=== PATIENT | male | born 1965 | race Caucasian/White ===

== ENCOUNTER 2021-02-07 12:42 | Observation (INO) ==
--- NOTE | 2021-02-07 14:44 | Emergency Department Note ---
Impression & Plan Stroke-like episode ADMIT ED Provider Note HPI: The patient is a 55-year-old male with history of hypertension, presents the emergency department with concern for strokelike symptoms. Patient's is at the bedside and serves as the primary historian, patient's states that the patient developed some symptoms of right-sided visual change at about 9:00 that lasted about 20 minutes. Patient is able to tell me that he was having some difficulty using the mouse at work on his computer and could not get it lined up with certain things he was trying to click on on the desktop. Later in the day when he went to work he was having some issues with receptive aphasia, he was having difficulty processing information and responding appropriately when people were speaking to him. He also apparently had an episode of right-sided weakness that he tells me was transient On arrival here to the ED the patient does have some intermittent garbled speech and issues with communication, he is noted to have slight right-sided facial droop and some ataxia on qxgcwl-cy-zsgd testing on the right side. He is otherwise alert and oriented x3 and he is able to answer these questions appropriately, he is hemodynamically stable and saturating well on room air. ROS: -Neuro: Strokelike event, receptive aphasia, ataxia *10 point review systems was conducted and is otherwise negative unless stated above *Outpatient medications and allergy history reviewed PE: General: Alert, NAD HEENT: Normocephalic, atraumatic, trachea midline Eyes: Extraocular eye movement is intact, no scleral erythema Pulmonary: Clear to auscultation bilaterally, no wheezing Cardio: Regular rate and rhythm GI: Abdomen is soft, nontender : No suprapubic tenderness MSK: No evidence of trauma or malformation of the extremities, no edema Skin: No evidence of rash Neuro: Alert, mild right-sided facial droop is appreciated, there is ataxia on the right side on aolcza-ss-ehiv testing, left side rpfkix-qg-nbtl testing is intact, patient is noted to have difficulty responding to questions/receptive aphasia 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: - An order was placed for continuous cardiac monitoring - Patient was noted to be in sinus rhythm with rate of 96 EKG: Rate: 78 Rhythm: Normal sinus rhythm Intervals: Within normal limits ST changes: No ST elevation Time: 1450 NIH STROKE SCALE: 1A: Level of consciousness Alert; keenly responsive 0 1B: Ask month and age Both questions right 0 1C: 'Blink eyes' & 'squeeze hands' Performs both tasks 0 2: Horizontal extraocular movements Normal 0 3: Visual franz No visual loss 0 4: Facial palsy Minor paralysis (flat nasolabial fold, smile asymmetry) +1 5A: Left arm motor drift No drift for 10 seconds 0 5B: Right arm motor drift No drift for 10 seconds 0 6A: Left leg motor drift No drift for 5 seconds 0 6B: Right leg motor drift No drift for 5 seconds 0 7: Limb Ataxia Ataxia in 1 Limb +1 8: Sensation Normal; no sensory loss 0 9: Language/aphasiaNormal; no aphasia Mild-moderate aphasia: some obvious changes, without significant limitation +1 10: Dysarthria Normal 0 11: Extinction/inattention No abnormality 0 TOTAL NIH SCORE = 3 Medical Decision Making: CT imaging obtained here in the ED without contrast does not show any evidence of acute intracranial bleeding. No evidence of subacute stroke. CT angiography does not show any evidence of large vessel occlusion or stroke. Patient's lab work is largely unremarkable otherwise. He remained hemodynamically stable while here in the ED. He complained of some "restlessness" but did not have any progression of his symptoms. Patient was given a dose of aspirin following negative CT imaging. He is not considered a candidate for TPA therapy given that he is outside the 4.5-hour window for therapy, he is not a candidate for thrombectomy with negative CTA. He has an NIH stroke score of 3, he has ataxia on the right side on wnfpus-iy-wcha testing, he is also noted to have some very mild right-sided facial droop, he has had some intermittent issues with receptive aphasia. This seems to be improving throughout his stay here in the ED. Patient was given a dose of Ativan after his work-up was completed as he stated he felt very restless and was having issues with anxiety. I do think he needs to stay in the hospital for secondary stroke work-up and MRI imaging of the brain as I do have concern that the symptoms today represent an ischemic stroke. Patient is at the bedside are in agreement. Case was discussed with the [place] [facility], STEVE Birch, and patient will be admitted to a telemetry bed for further management. * Diagnosis: Strokelike episode * Disposition: Admission * CRITICAL CARE TIME: 34 min -Management of acute strokelike symptoms requiring time at the bedside including physical exam and NIH stroke scale to be performed, discussion with the patient and his at the bedside, interpretation of diagnostic studies, discussion with other healthcare providers and arrangement of admission. Benentt Wood DO Emergency Medicine Past Med/Surg History Medical History (Updated 02/07/21 @ 16:11 by Bennett Wood DO) GERD (gastroesophageal reflux disease) Gout attack Hypertension Social History Smoking Status: Never smoker Feels Safe at Home: Yes Allergies Allergies Allergy/AdvReac Type Severity Reaction Status Date / Time No Known Allergies Allergy Unverified 02/07/21 15:53 Home Meds Home Medications Medication Instructions Recorded Confirmed allopurinol 100 mg tablet 100 mg PO BID 05/24/19 02/07/21 amlodipine 5 mg tablet 5 mg PO DAILY 02/07/21 02/07/21 losartan 100 mg tablet 100 mg PO DAILY 02/07/21 02/07/21 omeprazole 20 mg capsule,delayed 20 mg PO DAILY 02/07/21 02/07/21 release Results & Data (ED) Vital Signs Vital Signs - 24 hr 02/07/21 12:46 02/07/21 14:42 02/07/21 15:27 Temperature 36.2 C L Temperature Source Temporal Artery Scan Pulse Rate 100 H Pulse Rate [Apical] 84 Pulse Rate [Finger] 82 Pulse Rhythm [Apical] Regular Pulse Rhythm [Finger] Regular Pulse Strength [Apical] Normal Pulse Strength [Finger] Normal Respiratory Rate 17 20 22 Respiratory Effort / Characteristics Non-Labored Non-Labored Spontaneous Respiratory Depth Normal Normal Respiratory Pattern Regular Regular Blood Pressure 129/67 Blood Pressure [Right Arm] 168/119 H 158/100 H Blood Pressure Mean 87 Blood Pressure Mean [Right Arm] 135 119 Blood Pressure Position [Right Arm] Sitting Semi-fowlers Pulse Oximetry 96 94 99 Oxygen Delivery Method Room Air Room Air Room Air Sepsis Recent Fever Within 48 Hours No Sepsis New/Unexplained Change in Mental Status N/A Sepsis Action Taken by Nursing No Action Required Laboratory Data Result diagrams: 02/07/21 14:50 02/07/21 14:50 Lab Results 02/07/21 02/07/21 02/07/21 Range/Units 14:49 14:50 14:50 WBC 10.89 H (4.8-10.8) K/uL RBC 5.25 (4.7-6.1) M/uL Hgb 16.7 (14.0-18.0) g/dL Hct 48.6 (42-52) % MCV 92.6 (80-100) fL MCH 31.8 (25-34) pg MCHC 34.4 (32-36) g/dL RDW Std Deviation 44.4 (36.4-46.3) fL RDW Coeff of Margi 13.0 (11.5-14.5) % Plt Count 280 (130-400) K/uL MPV 9.6 (7.4-10.4) fL Immature Gran % (Auto) 0.3 % Neut % (Auto) 68.8 % Lymph % (Auto) 22.2 % [place] % (Auto) 6.7 % Eos % (Auto) 1.4 % Baso % (Auto) 0.6 % Neut # (Auto) 7.50 H (1.4-6.5) K/uL Lymph # (Auto) 2.42 (1.2-3.4) K/uL [place] # (Auto) 0.73 H (0.11-0.59) K/uL Eos # (Auto) 0.15 (0-0.5) K/uL Baso # (Auto) 0.06 (0-0.2) K/uL Immature Gran # (Auto) 0.03 H (0.00-0.02) K/uL PT 9.8 (9.0-12.0) Seconds INR 1.0 (0.9-1.1) APTT 25.6 (21.0-31.0) Seconds PTT Ratio 1.0 Sodium (136-145) mmol/L Potassium (3.5-5.1) mmol/L Chloride (98-107) mmol/L Carbon Dioxide (21-32) mmol/L Anion Gap (3-11) BUN (7-18) mg/dl Creatinine (0.6-1.4) mg/dl Est Cr Clr Drug Dosing ml/min Est GFR ( Amer) ml/min Est GFR (Non-Af Amer) ml/min BUN/Creatinine Ratio (10-20) Glucose (70-99) mg/dl POC Glucose 104 H (70-99) mg/dl Calcium (8.5-10.1) mg/dl Magnesium (1.8-2.4) mg/dl Total Bilirubin (0.2-1) mg/dl AST (15-37) U/L ALT (12-78) U/L Alkaline Phosphatase (45-117) U/L Troponin I (0-0.045) ng/ml Total Protein (6.4-8.2) gm/dl Albumin (3.4-5.0) gm/dl Globulin (2.5-4.0) gm/dl Albumin/Globulin Ratio (0.9-2) 02/07/21 Range/Units 14:50 WBC (4.8-10.8) K/uL RBC (4.7-6.1) M/uL Hgb (14.0-18.0) g/dL Hct (42-52) % MCV (80-100) fL MCH (25-34) pg MCHC (32-36) g/dL RDW Std Deviation (36.4-46.3) fL RDW Coeff of Margi (11.5-14.5) % Plt Count (130-400) K/uL MPV (7.4-10.4) fL Immature Gran % (Auto) % Neut % (Auto) % Lymph % (Auto) % [place] % (Auto) % Eos % (Auto) % Baso % (Auto) % Neut # (Auto) (1.4-6.5) K/uL Lymph # (Auto) (1.2-3.4) K/uL [place] # (Auto) (0.11-0.59) K/uL Eos # (Auto) (0-0.5) K/uL Baso # (Auto) (0-0.2) K/uL Immature Gran # (Auto) (0.00-0.02) K/uL PT (9.0-12.0) Seconds INR (0.9-1.1) APTT (21.0-31.0) Seconds PTT Ratio Sodium 137 (136-145) mmol/L Potassium 3.8 (3.5-5.1) mmol/L Chloride 103 (98-107) mmol/L Carbon Dioxide 26 (21-32) mmol/L Anion Gap 8.0 (3-11) BUN 18 (7-18) mg/dl Creatinine 1.43 H (0.6-1.4) mg/dl Est Cr Clr Drug Dosing 68.0 ml/min Est GFR ( Amer) 62.6 ml/min Est GFR (Non-Af Amer) 54.0 ml/min BUN/Creatinine Ratio 12.7 (10-20) Glucose 103 H (70-99) mg/dl POC Glucose (70-99) mg/dl Calcium 9.2 (8.5-10.1) mg/dl Magnesium 2.4 (1.8-2.4) mg/dl Total Bilirubin 0.6 (0.2-1) mg/dl AST 21 (15-37) U/L ALT 42 (12-78) U/L Alkaline Phosphatase 132 H (45-117) U/L Troponin I < 0.015 (0-0.045) ng/ml Total Protein 8.4 H (6.4-8.2) gm/dl Albumin 4.5 (3.4-5.0) gm/dl Globulin 3.9 (2.5-4.0) gm/dl Albumin/Globulin Ratio 1.2 (0.9-2) Administered Medications Sodium Chloride (Nss 1000ml) 1,000 mls @ 999 mls/hr IV .Q1H1M ONE Stop: 02/07/21 16:28 Last Admin: 02/07/21 15:50 Dose: 999 mls/hr Documented by: [id number] Discontinued Medications Aspirin (Aspirin Chew 324 Mg) 324 mg PO NOW STA Stop: 02/07/21 15:39 Last Admin: 02/07/21 15:50 Dose: 324 mg Documented by: [id number] Ioversol (Optiray 320 125ml) 120 ml IV ONCE ONE Stop: 02/07/21 15:22 Last Admin: 02/07/21 15:21 Dose: 120 ml Documented by: [id number] Imaging Data Radiologist's Impression: Head CT 02/07/21 14:[address] OF THE BRAIN; CT ANGIOGRAM OF THE BRAIN; CT ANGIOGRAM OF THE NECK CLINICAL HISTORY: Strokelike symptoms. COMPARISON STUDY: No priors. TECHNIQUE: Unenhanced axial CT scan of the brain is performed. Subsequently, following the IV administration of 120 of Optiray 320, CT angiogram of the head and neck was performed from the aortic arch to the vertex. Images are reviewed in the axial, sagittal, and coronal planes. 3-D MIPS images are created and assessed. IV contrast was administered without complication. All measurements were calculated based on NASCET criteria. A dose lowering technique was utilized adhering to the principles of ALARA. CT DOSE: 1334.08 mGy.cm FINDINGS: Brain parenchyma: The brain parenchyma is normal in appearance. There is no hemorrhage, mass effect, or evidence of acute territorial ischemia by CT cri teria. There is no evidence of enhancing mass lesion on the angiogram phase images. The ventricles, sulci, and cisterns are normal in configuration. Hernandez- white matter differentiation is preserved. No extra-axial fluid collection is seen. Thoracic aorta: Visualized portions of the thoracic aorta are normal in caliber. The aortic arch demonstrates standard 3-vessel anatomy. Right carotid arterial system: Right common carotid artery is widely patent, as are the right internal and external carotid arteries. Mild plaque is seen in the carotid bulb. Left carotid arterial system: The left common carotid artery is widely patent, as are the left internal and external carotid arteries. Vertebral arteries: Vertebral arteries are widely patent bilaterally and codominant in the neck. Subclavian arteries: Widely patent bilaterally. Intracranial vasculature: The internal carotid arteries are patent at the skull base, as are the anterior and middle cerebral arteries bilaterally. The vertebrobasilar system and posterior cerebral arteries are widely patent. Intervertebral arteries are codominant. There is no aneurysm, high-grade stenosis, or focal vessel cut off seen throughout the intracranial circulation. Jugular veins: Patent bilaterally. Dural sinuses: Patent. Lung apices: Partially visualized upper lobe lung parenchyma appears clear. Soft tissues: The visualized pharyngeal soft tissues are normal in appearance noting angiographic phase technique. The oropharyngeal airway appears widely patent. The salivary and thyroid glands are normal in appearance. No cervical lymphadenopathy is seen. Skeletal structures: The calvarium appears intact. The cervical spine is maintained noting multilevel spondylosis. No lytic or blastic lesion is seen. Orbits: The bony orbits are intact. Orbital contents are normal as visualized. Sinuses and mastoids: There is subtotal opacification of the right maxillary sinus. The remaining paranasal sinuses are clear. The mastoid air cells are well pneumatized. IMPRESSION: 1. There is no hemorrhage, mass effect, or evidence of acute territorial ischemia by CT criteria. 2. Unremarkable CT angiogram of the brain. 3. Unremarkable CT angiogram of the neck. 4. Right maxillary sinus disease as above. ACT 112: Negative or not required by law. Electronically signed by: Osito Patel M.D. 02/07/2021 3:32 PM Head CTA 02/07/21 14:[address] OF THE BRAIN; CT ANGIOGRAM OF THE BRAIN; CT ANGIOGRAM OF THE NECK CLINICAL HISTORY: Strokelike symptoms. COMPARISON STUDY: No priors. TECHNIQUE: Unenhanced axial CT scan of the brain is performed. Subsequently, following the IV administration of 120 of Optiray 320, CT angiogram of the head and neck was performed from the aortic arch to the vertex. Images are reviewed in the axial, sagittal, and coronal planes. 3-D MIPS images are created and assessed. IV contrast was administered without complication. All measurements were calculated based on NASCET criteria. A dose lowering technique was utilized adhering to the principles of ALARA. CT DOSE: 1334.08 mGy.cm FINDINGS: Brain parenchyma: The brain parenchyma is normal in appearance. There is no hemorrhage, mass effect, or evidence of acute territorial ischemia by CT criteria. There is no evidence of enhancing mass lesion on the angiogram phase images. The ventricles, sulci, and cisterns are normal in configuration. Hernandez- white matter differentiation is preserved. No extra-axial fluid collection is seen. Thoracic aorta: Visualized portions of the thoracic aorta are normal in caliber. The aortic arch demonstrates standard 3-vessel anatomy. Right carotid arterial system: Right common carotid artery is widely patent, as are the right internal and external carotid arteries. Mild plaque is seen in the carotid bulb. Left carotid arterial system: The left common carotid artery is widely patent, as are the left internal and external carotid arteries. Vertebral arteries: Vertebral arteries are widely patent bilaterally and codominant in the neck. Subclavian arteries: Widely patent bilaterally. Intracranial vasculature: The internal carotid arteries are patent at the skull base, as are the anterior and middle cerebral arteries bilaterally. The vertebrobasilar system and posterior cerebral arteries are widely patent. Intervertebral arteries are codominant. There is no aneurysm, high-grade stenosis, or focal vessel cut off seen throughout the intracranial circulation. Jugular veins: Patent bilaterally. Dural sinuses: Patent. Lung apices: Partially visualized upper lobe lung parenchyma appears clear. Soft tissues: The visualized pharyngeal soft tissues are normal in appearance noting angiographic phase technique. The oropharyngeal airway appears widely patent. The salivary and thyroid glands are normal in appearance. No cervical lymphadenopathy is seen. Skeletal structures: The calvarium appears intact. The cervical spine is maintained noting multilevel spondylosis. No lytic or blastic lesion is seen. Orbits: The bony orbits are intact. Orbital contents are normal as visualized. Sinuses and mastoids: There is subtotal opacification of the right maxillary sinus. The remaining paranasal sinuses are clear. The mastoid air cells are well pneumatized. IMPRESSION: 1. There is no hemorrhage, mass effect, or evidence of acute territorial ischemia by CT criteria. 2. Unremarkable CT angiogram of the brain. 3. Unremarkable CT angiogram of the neck. 4. Right maxillary sinus disease as above. ACT 112: Negative or not required by law. Electronically signed by: Osito Patel M.D. 02/07/2021 3:32 PM Neck CTA 02/07/21 14:[address] OF THE BRAIN; CT ANGIOGRAM OF THE BRAIN; CT ANGIOGRAM OF THE NECK CLINICAL HISTORY: Strokelike symptoms. COMPARISON STUDY: No priors. TECHNIQUE: Unenhanced axial CT scan of the brain is performed. Subsequently, following the IV administration of 120 of Optiray 320, CT angiogram of the head and neck was performed from the aortic arch to the vertex. Images are reviewed in the axial, sagittal, and coronal planes. 3-D MIPS images are created and assessed. IV contrast was administered without complication. All measurements were calculated based on NASCET criteria. A dose lowering technique was utilized adhering to the principles of ALARA. CT DOSE: 1334.08 mGy.cm FINDINGS: Brain parenchyma: The brain parenchyma is normal in appearance. There is no hemorrhage, mass effect, or evidence of acute territorial ischemia by CT criteria. There is no evidence of enhancing mass lesion on the angiogram phase images. The ventricles, sulci, and cisterns are normal in configuration. Hernandez- white matter differentiation is preserved. No extra-axial fluid collection is seen. Thoracic aorta: Visualized portions of the thoracic aorta are normal in caliber. The aortic arch demonstrates standard 3-vessel anatomy. Right carotid arterial system: Right common carotid artery is widely patent, as are the right internal and external carotid arteries. Mild plaque is seen in the carotid bulb. Left carotid arterial system: The left common carotid artery is widely patent, as are the left internal and external carotid arteries. Vertebral arteries: Vertebral arteries are widely patent bilaterally and codominant in the neck. Subclavian arteries: Widely patent bilaterally. Intracranial vasculature: The internal carotid arteries are patent at the skull base, as are the anterior and middle cerebral arteries bilaterally. The vertebrobasilar system and posterior cerebral arteries are widely patent. Intervertebral arteries are codominant. There is no aneurysm, high-grade stenosis, or focal vessel cut off seen throughout the intracranial circulation. Jugular veins: Patent bilaterally. Dural sinuses: Patent. Lung apices: Partially visualized upper lobe lung parenchyma appears clear. Soft tissues: The visualized pharyngeal soft tissues are normal in appearance noting angiographic phase technique. The oropharyngeal airway appears widely patent. The salivary and thyroid glands are normal in appearance. No cervical lymphadenopathy is seen. Skeletal structures: The calvarium appears intact. The cervical spine is maintained noting multilevel spondylosis. No lytic or blastic lesion is seen. Orbits: The bony orbits are intact. Orbital contents are normal as visualized. Sinuses and mastoids: There is subtotal opacification of the right maxillary si nus. The remaining paranasal sinuses are clear. The mastoid air cells are well pneumatized. IMPRESSION: 1. There is no hemorrhage, mass effect, or evidence of acute territorial ischemia by CT criteria. 2. Unremarkable CT angiogram of the brain. 3. Unremarkable CT angiogram of the neck. 4. Right maxillary sinus disease as above. ACT 112: Negative or not required by law. Electronically signed by: Osito Patel M.D. 02/07/2021 3:32 PM Discharge Plan Visit Data Chief Complaint: Neuro Symptoms/Deficit Stated Complaint: LOST FOCUS, COULDN'T TALK, EYE BLURRY, DROOPING ED Provider: Bennett Wood Discharge Problem: Stroke-like episode Forms Stand Alone Forms: My [facility] [id number] Prescriptions Prescriptions: No Action allopurinol 100 mg Tablet 100 mg PO BID RF: 0 amlodipine 5 mg tablet 5 mg PO DAILY RF: 0 omeprazole 20 mg capsule,delayed release(DR/EC) 20 mg PO DAILY RF: 0 losartan 100 mg tablet 100 mg PO DAILY RF: 0 Referrals Referrals: Galo Jolly MD [Primary Care Provider] -
[2021-02-07 15:03] LABS: Basophils # (auto) 0.06 K/uL (0-0.2); Basophils % (auto) 0.6 %; Eosinophils # (auto) 0.15 K/uL (0-0.5); Eosinophils % (auto) 1.4 %; Hematocrit (blood only) 48.6 % (42-52); Hemoglobin 16.7 g/dL (14.0-18.0); Immature Granulocytes # (auto) 0.03 K/uL (0.00-0.02); Immature Granulocytes % (auto) 0.3 %; Lymphocytes # (auto) 2.42 K/uL (1.2-3.4); Lymphocytes % (auto) 22.2 %; Mean Corpuscular Hemoglobin 31.8 pg (25-34); Mean Corpuscular Hgb Conc 34.4 g/dL (32-36); Mean Corpuscular Volume 92.6 fL (80-100); Mean Platelet Volume 9.6 fL (7.4-10.4); Monocytes # (auto) 0.73 K/uL (0.11-0.59); Monocytes % (auto) 6.7 %; Neutrophils % (auto) 68.8 %; Platelet Count 280 K/uL (130-400); RDW Standard Deviation 44.4 fL (36.4-46.3); Red Blood Count 5.25 M/uL (4.7-6.1); White Blood Count 10.89 K/uL (4.8-10.8)
[2021-02-07 15:21] LABS: Partial Thromboplastin Time 25.6 Seconds (21.0-31.0); Prothrombin Time 9.8 Seconds (9.0-12.0)
[2021-02-07] MEDS ORDERED: OPTIRAY 320 125ml IV ONE (15:21)
[2021-02-07 15:22] LABS: Alanine Aminotransferase 42 U/L (12-78); Albumin Level 4.5 gm/dl (3.4-5.0); Aspartate Aminotransferase 21 U/L (15-37); BUN Creatinine Ratio 12.7 (10-20); Blood Urea Nitrogen 18 mg/dl (7-18); Calcium 9.2 mg/dl (8.5-10.1); Carbon Dioxide 26 mmol/L (21-32); Chloride 103 mmol/L (98-107); Est GFR (African American) 62.6 ml/min; Glucose 103 mg/dl (70-99); Magnesium 2.4 mg/dl (1.8-2.4); Potassium 3.8 mmol/L (3.5-5.1); Sodium 137 mmol/L (136-145)
[2021-02-07 15:26] LABS: Albumin Globulin Ratio 1.2 (0.9-2); Alkaline Phosphatase 132 U/L (45-117); Bilirubin,Total 0.6 mg/dl (0.2-1); Globulin 3.9 gm/dl (2.5-4.0); Total Protein 8.4 gm/dl (6.4-8.2); Troponin I < 0.015 ng/ml (0-0.045)
[2021-02-07] MEDS ORDERED: SODIUM CHLORIDE 0.9% 1000ML 1,000 ML IV ONE (15:28)
--- NOTE | 2021-02-07 15:34 | CT Scan Report ---
UNENHANCED CT OF THE BRAIN; CT ANGIOGRAM OF THE BRAIN; CT ANGIOGRAM OF THE NECK CLINICAL HISTORY: Strokelike symptoms. COMPARISON STUDY: No priors. TECHNIQUE: Unenhanced axial CT scan of the brain is performed. Subsequently, following the IV adminis tration of 120 of Optiray 320, CT angiogram of the head and neck was performed from the aortic arch t o the vertex. Images are reviewed in the axial, sagittal, and coronal planes. 3-D MIPS images are cre ated and assessed. IV contrast was administered without complication. All measurements were calculate d based on NASCET criteria. A dose lowering technique was utilized adhering to the principles of ALA RA. CT DOSE: 1334.08 mGy.cm FINDINGS: Brain parenchyma: The brain parenchyma is normal in appearance. There is no hemorrhage, mass effect, or evidence of acute territorial ischemia by CT criteria. There is no evidence of enhancing mass lesi on on the angiogram phase images. The ventricles, sulci, and cisterns are normal in configuration. Gr ay-white matter differentiation is preserved. No extra-axial fluid collection is seen. Thoracic aorta: Visualized portions of the thoracic aorta are normal in caliber. The aortic arch demo nstrates standard 3-vessel anatomy. Right carotid arterial system: Right common carotid artery is widely patent, as are the right interna l and external carotid arteries. Mild plaque is seen in the carotid bulb. Left carotid arterial system: The left common carotid artery is widely patent, as are the left transportation logistics internship al and external carotid arteries. Vertebral arteries: Vertebral arteries are widely patent bilaterally and codominant in the neck. Subclavian arteries: Widely patent bilaterally. Intracranial vasculature: The internal carotid arteries are patent at the skull base, as are the ante rior and middle cerebral arteries bilaterally. The vertebrobasilar system and posterior cerebral adam ruthie are widely patent. Intervertebral arteries are codominant. There is no aneurysm, high-grade sten osis, or focal vessel cut off seen throughout the intracranial circulation. Jugular veins: Patent bilaterally. Dural sinuses: Patent. Lung apices: Partially visualized upper lobe lung parenchyma appears clear. Soft tissues: The visualized pharyngeal soft tissues are normal in appearance noting angiographic pha se technique. The oropharyngeal airway appears widely patent. The salivary and thyroid glands are nor mal in appearance. No cervical lymphadenopathy is seen. Skeletal structures: The calvarium appears intact. The cervical spine is maintained noting multilevel spondylosis. No lytic or blastic lesion is seen. Orbits: The bony orbits are intact. Orbital contents are normal as visualized. Sinuses and mastoids: There is subtotal opacification of the right maxillary sinus. The remaining par anasal sinuses are clear. The mastoid air cells are well pneumatized. IMPRESSION: 1. There is no hemorrhage, mass effect, or evidence of acute territorial ischemia by CT criteria. 2. Unremarkable CT angiogram of the brain. 3. Unremarkable CT angiogram of the neck. 4. Right maxillary sinus disease as above. ACT 112: Negative or not required by law. Electronically signed by: Osito Patel M.D. 02/07/2021 3:32 PM
[2021-02-07] MEDS ORDERED: ASPIRIN CHEW 324 MG PO STA (15:38)
[2021-02-07] MEDS ORDERED: LORazepam 1 MG/2 ML VIAL IV STA (16:14)
--- NOTE | 2021-02-07 17:33 | Electrocardiogram Report ---
Test Reason : Blood Pressure : / mmHG Vent. Rate : 078 BPM Atrial Rate : 078 BPM P-R Int : 152 ms QRS Dur : 084 ms QT Int : 390 ms P-R-T Axes : 059 069 046 degrees QTc Int : 444 ms Normal sinus rhythm Normal ECG When compared with ECG of 24-MAY-2019 08:10, No significant change was found Confirmed by Willy Kemp ([id number]) on 02/07/2021 5:33:16 PM Referred By: REFERRED SELF Confirmed By:Jorge Alberto Kemp
--- NOTE | 2021-02-07 17:56 | History & Physical Report ---
Date of Service February 07, 2021 Assessment & Plan (1) Stroke-like symptoms: (2) Amaurosis fugax of right eye: (3) Dystonia of extremity: (4) Hypertension: (5) CKD (chronic kidney disease) stage 3, GFR 30-59 ml/min: (6) DVT prophylaxis: Plan: This is a 55-year-old male who has significant past medical history of HTN, gout, CKD stage III, obesity who presents to ED after experiencing strokelike symptoms since 9:00. Upon my evaluation symptoms have fully resolved. He passed dysphagia screen. Initial CT of head and CT of head and neck negative for acute abnormality. He does continue to have involuntary movements of right lower extremity. Strokelike symptoms Amaurosis fugax of right eye Dystonia of right lower extremity Admit to telemetry Consult neurology Obtain MRI brain with and without contrast Echocardiogram ASA 325mg given in ED start asa 81mg daily and atorvastatin 40mg daily Lyme and Anaplasma titers ordered PT/OT/ST Allow for permissive hypertension for 24 hours obtain ESR/CRP will need formal ophthalmology eval as OP a1c, lipid panel in a.m. HTN allow permissive HTN for 24 hrs on amlodipine and losartan as outpt, will hold for now CKD-3 baseline cr 1.4, bun/cr stable in light of receiving IV contrast will give gentle IVF x 500cc overnight GERD continue PPI Gout continue allopurinol DVT ppx: Lovenox Dispo: med tele PCP: Rik FULL CODE Pt was seen and examined in collaboration with Dr. Pritchard, please see addendum History of Present Illness Chief Complaint: Stroke like sx since 900. Primary Care Provider: Galo Jolly MD This is a 55-year-old male who has significant past medical history of HTN, gout, CKD stage III, obesity who presents to ED after experiencing strokelike symptoms since 9:00. After further recollection he actually feels symptoms may have initiated on Saturday. He states he was out hunting with his daughter. Hi s daughter shot a deer and when he was dragging a deer out of the [place] he developed abrupt vision loss in his right eye for approximately 20 minutes. He also felt weakness to his right arm. Symptoms resolved on own and he felt back to normal the rest of the night. He described his right vision loss is just seeing, "a white screen." When he would cover his right eye he could see on his left eye. This morning at approximately 9 AM his vision loss returned. He was driving by [place] [employer] on his way to work and he had difficulty maneuvering steering wheel with right arm. Symptoms lasted while at work and he was witnessed by his coworker to have difficulty with speech and reported right facial droop. He states when his boss was talking to him he could comprehend what she was saying but he was unable to speak. He also noted inability to control right hand and arm, weakness and right arm drift. He also elicits to right leg weakness. He has never experienced anything like this in the past, but does recall transient vision loss of the right eye approximately 10 years ago, again while hunting. He denies any recent illness, insect or tick bite, fever, chills, lightheadedness, dizziness, syncope, chest pain, shortness breath, nausea, vomiting, abdominal pain, URI symptoms, change in bowel or urinary habits. His symptoms lasted till approximately 230. He is now back to baseline although he does have uncontrolled movements to right lower extremity. He denies any new medications. He has been having right knee and right shoulder pain and did take his 's tramadol on 2 separate occasions. In ED patient remained hemodynamically stable although he was hypertensive. His creatinine was elevated at 1.43 which is consistent with outpatient labs. He underwent head and neck CTA which was unremarkable for acute abnormality. Allergies Allergy/AdvReac Type Severity Reaction Status Date / Time No Known Allergies Allergy Unverified 02/07/21 15:53 Home Medications Medication Instructions Recorded Confirmed Type allopurinol 100 mg tablet 100 mg PO BID 05/24/19 02/07/21 History amlodipine 5 mg tablet 5 mg PO DAILY 02/07/21 02/07/21 History losartan 100 mg tablet 100 mg PO DAILY 02/07/21 02/07/21 History aspirin 81 mg tablet,delayed 81 mg PO QAM #30 tab 02/08/21 Rx release atorvastatin 40 mg tablet 40 mg PO QAM #30 tab 02/08/21 Rx clopidogrel 75 mg tablet (Plavix) 75 mg PO DAILY #21 tab 02/08/21 Rx pantoprazole 40 mg tablet,delayed 40 mg PO DAILY #30 tab 02/08/21 Rx release Past Med/Surg History Medical History (Updated 02/08/21 @ 15:07 by Sheron Haro PA-C) CKD (chronic kidney disease) stage 3, GFR 30-59 ml/min GERD (gastroesophageal reflux disease) Gout attack Hypertension Surgical History (Updated 02/07/21 @ 17:51 by Queta Luis PA-C) History of appendectomy History of arthroscopic knee surgery History of foot surgery r bone spur removal History of vasectomy Family History Mother TIA (transient ischemic attack) Multiple sclerosis Grandmother (Paternal) Stroke Social History (Updated 02/07/21 @ 17:53 by Queta Luis PA-C) Smoking Status: Never smoker Hx Alcohol Use: Yes Alcohol type: beer Alcohol Intake Frequency Comment: rare; holidays Hx Substance Use: No Preferred Language: Japanese Communication Ability: Effective 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 Beliefs That Will Affect Care: None marital status: Current Living Situation: Spouse and Family current occupational status: employed current occupation: [employer] Feels Safe at Home: Yes Assistive Devices: None Review of Systems Review of Systems: All systems reviewed & are unremarkable except as noted in HPI & below Physical Exam Physical Exam: Constitutional: WD/WN, vitals as above, NAD, sitting up in bed, pleasant, conversing easily Head: Normocephalic, Atraumatic Eyes: PERRL, conjunctivae normal, anicteric sclerae ENMT: external ear and nose normal, oropharynx normal Neck: trachea midline, no thyromegaly normal visual inspection Respiratory: normal respiratory effort, lungs clear to auscultation, no wheeze, rales, rhonchi. Normal insp/exp effort, no accessory muscle use Cardiovascular: RRR, no murmur, no edema Vessels: no JVD or carotid bruit Chest: normal inspection of chest Abdomen: normal bowel sounds, soft, nontender, no hepatosplenomegaly Musculoskeletal: no cyanosis or clubbing, extremities motor strength 5/5 Skin: no rashes, warm and dry normal turgor Neurologic: PERRL, EOMI, accommodation nl, no face palsy, no dysarthria CN's II-XI intact bilaterally and moves all extremities , no pronator drift, +dystonia to RLE, point to point intact, rapid alternating movements in tact Psychiatric: A+Ox3, euthymic affect Lymphatic: no cervical or axillary lymphadenopathy : deferred Results & Data Results & Data ([facility]) Vital Signs (Past 12 Hours) Vital Signs Temp Pulse Pulse Pulse Resp BP BP 02/07/21 17:30 75 19 153/100 H 02/07/21 17:00 79 14 168/100 H 02/07/21 16:30 81 23 154/109 H 02/07/21 16:00 87 19 02/07/21 15:30 88 21 02/07/21 15:27 84 22 158/100 H 02/07/21 15:00 82 18 02/07/21 14:55 81 21 168/119 H 02/07/21 14:42 82 20 168/119 H 02/07/21 12:46 36.2 C L 100 H 17 129/67 Pulse Ox 02/07/21 17:30 02/07/21 17:00 93 02/07/21 16:30 96 02/07/21 16:00 92 02/07/21 15:30 98 02/07/21 15:27 99 02/07/21 15:00 98 02/07/21 14:55 95 02/07/21 14:42 94 02/07/21 12:46 [address] 02/07/21 14:[address] OF THE BRAIN; CT ANGIOGRAM OF THE BRAIN; CT ANGIOGRAM OF THE NECK CLINICAL HISTORY: Strokelike symptoms. COMPARISON STUDY: No priors. TECHNIQUE: Unenhanced axial CT scan of the brain is performed. Subsequently, following the IV administration of 120 of Optiray 320, CT angiogram of the head and neck was performed from the aortic arch to the vertex. Images are reviewed in the axial, sagittal, and coronal planes. 3-D MIPS images are created and assessed. IV contrast was administered without complication. All measurements were calculated based on NASCET criteria. A dose lowering technique was utilized adhering to the principles of ALARA. CT DOSE: 1334.08 mGy.cm FINDINGS: Brain parenchyma: The brain parenchyma is normal in appearance. There is no hemorrhage, mass effect, or evidence of acute territorial ischemia by CT criteria. There is no evidence of enhancing mass lesion on the angiogram phase images. The ventricles, sulci, and cisterns are normal in configuration. Hernandez- white matter differentiation is preserved. No extra-axial fluid collection is seen. Thoracic aorta: Visualized portions of the thoracic aorta are normal in caliber. The aortic arch demonstrates standard 3-vessel anatomy. Right carotid arterial system: Right common carotid artery is widely patent, as are the right internal and external carotid arteries. Mild plaque is seen in the carotid bulb. Left carotid arterial system: The left common carotid artery is widely patent, as are the left internal and external carotid arteries. Vertebral arteries: Vertebral arteries are widely patent bilaterally and codominant in the neck. Subclavian arteries: Widely patent bilaterally. Intracranial vasculature: The internal carotid arteries are patent at the skull base, as are the anterior and middle cerebral arteries bilaterally. The vertebrobasilar system and posterior cerebral arteries are widely patent. Intervertebral arteries are codominant. There is no aneurysm, high-grade stenosis, or focal vessel cut off seen throughout the intracranial circulation. Jugular veins: Patent bilaterally. Dural sinuses: Patent. Lung apices: Partially visualized upper lobe lung parenchyma appears clear. Soft tissues: The visualized pharyngeal soft tissues are normal in appearance noting angiographic phase technique. The oropharyngeal airway appears widely patent. The salivary and thyroid glands are normal in appearance. No cervical lymphadenopathy is seen. Skeletal structures: The calvarium appears intact. The cervical spine is maintained noting multilevel spondylosis. No lytic or blastic lesion is seen. Orbits: The bony orbits are intact. Orbital contents are normal as visualized. Sinuses and mastoids: There is subtotal opacification of the right maxillary sinus. The remaining paranasal sinuses are clear. The mastoid air cells are well pneumatized. IMPRESSION: 1. There is no hemorrhage, mass effect, or evidence of acute territorial ischemia by CT criteria. 2. Unremarkable CT angiogram of the brain. 3. Unremarkable CT angiogram of the neck. 4. Right maxillary sinus disease as above. ACT 112: Negative or not required by law. Electronically signed by: Osito Patel M.D. 02/07/2021 3:32 PM Head CTA 02/07/21 14:[address] OF THE BRAIN; CT ANGIOGRAM OF THE BRAIN; CT ANGIOGRAM OF THE NECK CLINICAL HISTORY: Strokelike symptoms. COMPARISON STUDY: No priors. TECHNIQUE: Unenhanced axial CT scan of the brain is performed. Subsequently, following the IV administration of 120 of Optiray 320, CT angiogram of the head and neck was performed from the aortic arch to the vertex. Images are reviewed in the axial, sagittal, and coronal planes. 3-D MIPS images are created and assessed. IV contrast was administered without complication. All measurements were calculated based on NASCET criteria. A dose lowering technique was utilized adhering to the principles of ALARA. CT DOSE: 1334.08 mGy.cm FINDINGS: Brain parenchyma: The brain parenchyma is normal in appearance. There is no hemorrhage, mass effect, or evidence of acute territorial ischemia by CT criteria. There is no evidence of enhancing mass lesion on the angiogram phase images. The ventricles, sulci, and cisterns are normal in configuration. Hernandez- white matter differentiation is preserved. No extra-axial fluid collection is seen. Thoracic aorta: Visualized portions of the thoracic aorta are normal in caliber. The aortic arch demonstrates standard 3-vessel anatomy. Right carotid arterial system: Right common carotid artery is widely patent, as are the right internal and external carotid arteries. Mild plaque is seen in the carotid bulb. Left carotid arterial system: The left common carotid artery is widely patent, as are the left internal and external carotid arteries. Vertebral arteries: Vertebral arteries are widely patent bilaterally and codominant in the neck. Subclavian arteries: Widely patent bilaterally. Intracranial vasculature: The internal carotid arteries are patent at the skull base, as are the anterior and middle cerebral arteries bilaterally. The vertebrobasilar system and posterior cerebral arteries are widely patent. Intervertebral arteries are codominant. There is no aneurysm, high-grade stenosis, or focal vessel cut off seen throughout the intracranial circulation. Jugular veins: Patent bilaterally. Dural sinuses: Patent. Lung apices: Partially visualized upper lobe lung parenchyma appears clear. Soft tissues: The visualized pharyngeal soft tissues are normal in appearance noting angiographic phase technique. The oropharyngeal airway appears widely patent. The salivary and thyroid glands are normal in appearance. No cervical lymphadenopathy is seen. Skeletal structures: The calvarium appears intact. The cervical spine is maintained noting multilevel spondylosis. No lytic or blastic lesion is seen. Orbits: The bony orbits are intact. Orbital contents are normal as visualized. Sinuses and mastoids: There is subtotal opacification of the right maxillary sinus. The remaining paranasal sinuses are clear. The mastoid air cells are well pneumatized. IMPRESSION: 1. There is no hemorrhage, mass effect, or evidence of acute territorial ischemia by CT criteria. 2. Unremarkable CT angiogram of the brain. 3. Unremarkable CT angiogram of the neck. 4. Right maxillary sinus disease as above. ACT 112: Negative or not required by law. Electronically signed by: Osito Patel M.D. 02/07/2021 3:32 PM Neck CTA 02/07/21 14:[address] OF THE BRAIN; CT ANGIOGRAM OF THE BRAIN; CT ANGIOGRAM OF THE NECK CLINICAL HISTORY: Strokelike symptoms. COMPARISON STUDY: No priors. TECHNIQUE: Unenhanced axial CT scan of the brain is performed. Subsequently, following the IV administration of 120 of Optiray 320, CT angiogram of the head and neck was performed from the aortic arch to the vertex. Images are reviewed in the axial, sagittal, and coronal planes. 3-D MIPS images are created and assessed. IV contrast was administered without complication. All measurements were calculated based on NASCET criteria. A dose lowering technique was utilized adhering to the principles of ALARA. CT DOSE: 1334.08 mGy.cm FINDINGS: Brain parenchyma: The brain parenchyma is normal in appearance. There is no hemorrhage, mass effect, or evidence of acute territorial ischemia by CT criteria. There is no evidence of enhancing mass lesion on the angiogram phase images. The ventricles, sulci, and cisterns are normal in configuration. Hernandez- white matter differentiation is preserved. No extra-axial fluid collection is seen. Thoracic aorta: Visualized portions of the thoracic aorta are normal in caliber. The aortic arch demonstrates standard 3-vessel anatomy. Right carotid arterial system: Right common carotid artery is widely patent, as are the right internal and external carotid arteries. Mild plaque is seen in the carotid bulb. Left carotid arterial system: The left common carotid artery is widely patent, as are the left internal and external carotid arteries. Vertebral arteries: Vertebral arteries are widely patent bilaterally and codominant in the neck. Subclavian arteries: Widely patent bilaterally. Intracranial vasculature: The internal carotid arteries are patent at the skull base, as are the anterior and middle cerebral arteries bilaterally. The vertebrobasilar system and posterior cerebral arteries are widely patent. Intervertebral arteries are codominant. There is no aneurysm, high-grade stenosis, or focal vessel cut off seen throughout the intracranial circulation. Jugular veins: Patent bilaterally. Dural sinuses: Patent. Lung apices: Partially visualized upper lobe lung parenchyma appears clear. Soft tissues: The visualized pharyngeal soft tissues are normal in appearance noting angiographic phase technique. The oropharyngeal airway appears widely patent. The salivary and thyroid glands are normal in appearance. No cervical lymphadenopathy is seen. Skeletal structures: The calvarium appears intact. The cervical spine is maintained noting multilevel spondylosis. No lytic or blastic lesion is seen. Orbits: The bony orbits are intact. Orbital contents are normal as visualized. Sinuses and mastoids: There is subtotal opacification of the right maxillary sinus. The remaining paranasal sinuses are clear. The mastoid air cells are well pneumatized. IMPRESSION: 1. There is no hemorrhage, mass effect, or evidence of acute territorial ischemia by CT criteria. 2. Unremarkable CT angiogram of the brain. 3. Unremarkable CT angiogram of the neck. 4. Right maxillary sinus disease as above. ACT 112: Negative or not required by law. Electronically signed by: Osito Patel M.D. 02/07/2021 3:32 PM Medications Administered Medication List Discontinued Medications Aspirin (Aspirin Chew 324 Mg) 324 mg PO NOW STA Stop: 02/07/21 15:39 Last Admin: 02/07/21 15:50 Dose: 324 mg Documented by: [id number] Sodium Chloride (Nss 1000ml) 1,000 mls @ 999 mls/hr IV .Q1H1M ONE Stop: 02/07/21 16:28 Last Admin: 02/07/21 15:50 Dose: 999 mls/hr Documented by: [id number] Lorazepam (Ativan) 1 mg in 2 mls @ 2 mls/min IV NOW STA Stop: 02/07/21 16:15 Last Admin: 02/07/21 16:33 Dose: 2 mls/min Documented by: [id number] Ioversol (Optiray 320 125ml) 120 ml IV ONCE ONE Stop: 02/07/21 15:22 Last Admin: 02/07/21 15:21 Dose: 120 ml Documented by: [id number] ECG Rate (beats per minute): 78 Rhythm: normal sinus COVID-19 Results Results COVID-19 Adm Lab Results: RBC 4.67 M/uL (4.7-6.1) L 02/08/21 WBC 8.02 K/uL (4.8-10.8) 02/08/21 Hgb 14.5 g/dL (14.0-18.0) 02/08/21 Hct 43.5 % (42-52) 02/08/21 Plt Count 270 K/uL (130-400) 02/08/21 Neutrophils (%) (Auto) 58.4 % 02/08/21 Lymphocytes (%) (Auto) 27.6 % 02/08/21 Monocytes # (Auto) 0.79 K/uL (0.11-0.59) H 02/08/21 Eosinophils # (Auto) 0.27 K/uL (0-0.5) 02/08/21 Immature Granulocyte % (Auto) 0.1 % 02/08/21 Neutrophils # (Auto) 4.69 K/uL (1.4-6.5) 02/08/21 Lymphocytes # (Auto) 2.21 K/uL (1.2-3.4) 02/08/21 Monocytes # (Auto) 0.79 K/uL (0.11-0.59) H 02/08/21 Eosinophils # (Auto) 0.27 K/uL (0-0.5) 02/08/21 Basophils # (Auto) 0.05 K/uL (0-0.2) 02/08/21 Immature Granulocyte # (Auto) 0.01 K/uL (0.00-0.02) 02/08/21 Na 138 mmol/L (136-145) 02/08/21 K 3.8 mmol/L (3.5-5.1) 02/08/21 Cl 105 mmol/L (98-107) 02/08/21 CO2 27 mmol/L (21-32) 02/08/21 Anion Gap 6.0 (3-11) 02/08/21 BUN 18 mg/dl (7-18) 02/08/21 Creatinine 1.37 mg/dl (0.6-1.4) 02/08/21 BUN/Creatinine Ratio 13.2 (10-20) 02/08/21 Glucose Level 121 mg/dl (70-99) H 02/08/21 Ca 8.8 mg/dl (8.5-10.1) 02/08/21 Total Bilirubin 0.6 mg/dl (0.2-1) 02/07/21 AST/SGOT 21 U/L (15-37) 02/07/21 ALT/SGPT 42 U/L (12-78) 02/07/21 Alkaline Phosphatase 132 U/L (45-117) H 02/07/21 Total Protein 8.4 gm/dl (6.4-8.2) H 02/07/21 Albumin 4.5 gm/dl (3.4-5.0) 02/07/21 Globulin 3.9 gm/dl (2.5-4.0) 02/07/21 Albumin/Globulin Ratio 1.2 (0.9-2) 02/07/21 Troponin I < 0.015 ng/ml (0-0.045) 02/07/21 CRP 0.58 mg/dl (0-0.29) H 02/07/21 PTT 25.6 Seconds (21.0-31.0) 02/07/21 INR 1.0 (0.9-1.1) 02/07/21 Triglycerides Level 149 mg/dl (0-150) 02/08/21 SARS-CoV-2, RNA, NAAT NEGATIVE (NEGATIVE) 02/07/21 Code Status & VTE Plan Code Status FULL CODE VTE Prophylaxis Plan VTE Prophylaxis will be ordered: Yes Supervising Physician Co-Signing Physician Notes Attending Addendum: delayed entry date of service noted above care coordinated with WINNIE Ferguson please refer to her notes for full details, I agree with her notes patient seen and examined, records reviewed by myself as well on exam, patient seen resting in bed, comfortable, sitting up states R eye vision is back to baseline RUE weakness also resolved RLE (+) for involuntary jerking no other symptoms VS noted and reviewed oriented x 3 , not in distress, speaks in sentences with no effort nor accessory muscle use normal rate, regular rhythm, no murmurs clear breath sounds bilaterally non distended, soft, nontender no bipedal edema, erythema, warmth CN 1-12 grossly intact, motor 5/5, sensation 100% (+) involuntary movement of RLE WBC 8 Hg 14[address] head: no acute process ASSESSMENT AND PLAN Episode of R vision disturbance, RUE weakness, RLE involuntary movements possible TIA vs. Acute CVA -- Brain MRI pending -- hold anti HTN meds to allow permissive HTN start ASA -- Neurologist consulted HTN -- permissive HTN for possible TIA vs. Acute CVA other diagnoses and plan of care as per WINNIE Ferguson's notes Herson Pritchard MD
[2021-02-07] MEDS ORDERED: SODIUM CHLORIDE 0.9% 500 ML IV SCH (18:15)
[2021-02-07 18:19] LABS: C Reactive Protein 0.58 mg/dl (0-0.29)
[2021-02-07] MEDS ORDERED: PHARMACIST DISCHARGE MED REC CONSULT PRN (18:27)
[2021-02-07] MEDS ORDERED: hydrALAZINE HCL 20 MG/ML VIAL IV PRN (18:27)
[2021-02-07] MEDS ORDERED: ONDANSETRON INJ 2 MG/ML 2 ML VIAL IV PRN (18:27)
[2021-02-07 18:45] LABS: Lyme Ab IgG w/WB Rflx Negative (Negative); Lyme Ab IgM w/WB Rflx Negative (Negative)
[2021-02-07] MEDS ORDERED: allopurinoL 100 MG TAB PO SCH (21:00)
[2021-02-07] MEDS ORDERED: GADOBUTROL 65ML VIAL IV ONE (21:13)
[2021-02-07] MEDS ORDERED: ENOXAPARIN INJ 40 MG/0.4 ML SYR SQ SCH (22:00)
[2021-02-07] MEDS ORDERED: ALUMINUM/MAGNESIUM/SIMETH (MAALOX MAX) 30 ML UDC PO STA (22:19)
[2021-02-07] MEDS ORDERED: ALUMINUM/MAGNESIUM/SIMETH (MAALOX MAX) 30 ML UDC PO PRN (22:19)
[2021-02-08] MEDS ORDERED: ACETAMINOPHEN 325 MG TAB PO PRN (01:33)
[2021-02-08 06:40] LABS: Basophils # (auto) 0.05 K/uL (0-0.2); Basophils % (auto) 0.6 %; Eosinophils # (auto) 0.27 K/uL (0-0.5); Eosinophils % (auto) 3.4 %; Hematocrit (blood only) 43.5 % (42-52); Hemoglobin 14.5 g/dL (14.0-18.0); Immature Granulocytes # (auto) 0.01 K/uL (0.00-0.02); Immature Granulocytes % (auto) 0.1 %; Lymphocytes # (auto) 2.21 K/uL (1.2-3.4); Lymphocytes % (auto) 27.6 %; Mean Corpuscular Hgb Conc 33.3 g/dL (32-36); Mean Corpuscular Volume 93.1 fL (80-100); Mean Platelet Volume 9.8 fL (7.4-10.4); Monocytes # (auto) 0.79 K/uL (0.11-0.59); Monocytes % (auto) 9.9 %; Neutrophils # (auto) 4.69 K/uL (1.4-6.5); Neutrophils % (auto) 58.4 %; Platelet Count 270 K/uL (130-400); RDW Coefficient of Variation 13.1 % (11.5-14.5); RDW Standard Deviation 44.8 fL (36.4-46.3); Red Blood Count 4.67 M/uL (4.7-6.1); White Blood Count 8.02 K/uL (4.8-10.8)
[2021-02-08 07:30] LABS: Estimated Average Glucose 126 mg/dl
[2021-02-08 07:33] LABS: BUN Creatinine Ratio 13.2 (10-20); Calcium 8.8 mg/dl (8.5-10.1); Creatinine Clr Calc Pharmacy 72.3 ml/min; Est GFR (African American) 65.9 ml/min; Est GFR (Non-African American) 56.8 ml/min; Potassium 3.8 mmol/L (3.5-5.1)
--- NOTE | 2021-02-08 08:27 | Neurology Consultation ---
Date of Consultation February 08, 2021 Assessment & Plan (1) CVA (cerebral vascular accident): 1. MRI brain - left lentiform nucleus stroke 2. optimize HTN HLD, DM LDL <70 3. PT/OT speech discharge needs- no obvious needs at this time 4. start aspirin 81 mg and plavix 75 mg daily x 21 days and then aspirin 81 mg for life 5. ZIO as outpatient 6. needs healthy diet and exercise. decrease caffeine use 7. ophthalmology as outpatient follow up with neurology 4-6 weeks after discharge. Sheron RAO (2) Amaurosis fugax of right eye: Supervising Physician Co-Signing Physician Notes Patient was seen and examined. Daughter at bedside. Patient noted acute onset right sided weakness as well visual obscuration. Symptoms have since improved. He was not on ASA at home. History of HTN. No knonw SAURABH. No EtOH. Non smoker. On examine no focal weakness. Negative Kim sign. Toe downgoing. No ataxia with finger to nose. MRI discussed with patient. Acute lacunar infarct noted in the left basal ganglia. There is no hemorrhage, mass effect, or evidence of acute territorial ischemia by CT criteria. Unremarkable CT angiogram of the brain. Unremarkable CT angiogram of the neck. Recommend starting ASA 81 mg daily and PLavix 75 mg daily. Start Lipitor 40 mg daily. Zio patch and ophthalmology consult as outpatient. Follow up with Neurology in 8 weeks. OK to discharge to home. History of Present Illness Reason for Consultation: Right sided weakness, vision changes Requesting Physician: Sebastian Pratt MD Attending Physician: Sebastian Pratt MD History of Present Illness Joel is a 55 year old male with PMH- HTN, gout, CKD stage III, obesity, GERD who presents to [facility] 02/07/2021 after experiencing strokelike symptoms since 9:00. After further recollection he actually feels symptoms may have initiated on Saturday. He states he was out hunting with his daughter and his daughter shot a deer and when he was dragging a deer out of the [place] he developed abrupt vision loss in his right eye for approximately 20 minutes and weakness to his right arm. Symptoms resolved without intervention and he felt back to normal the rest of the night. He described his right vision loss is just seeing, "a white screen." When he would cover his right eye he could see on his left eye. This morning at approximately 9 AM his vision loss returned. He was driving by the [employer] on his way to work and he had difficulty maneuvering steering wheel with right arm. While at work he was witnessed by his coworker to have difficulty with speech and reported right facial droop. When his boss was talking to him he could comprehend what she was saying but he was unable to speak and inability to control right hand and arm, weakness and right arm drift and right leg weakness. He has never experienced anything like this in the past, but does recall transient vision loss of the right eye approximately 10 years ago, again while hunting.His symptoms lasted till approximately 230. He is now back to baseline although he does have uncontrolled movements to right lower extremity. He has been having right knee and right shoulder pain and did take his 's tramadol on 2 separate occasions.strong family history of lung CA, HTN. no tobacco use, social EtOH use, 2 liter bottles of soda per day. no other drugs He feels he is back to his baseline no graying of vision or double vision no weakness, numbness tingling. Allergies Allergy/AdvReac Type Severity Reaction Status Date / Time No Known Allergies Allergy Unverified 02/07/21 15:53 Home Medications Medication Instructions Recorded Confirmed Type allopurinol 100 mg tablet 100 mg PO BID 05/24/19 02/07/21 History amlodipine 5 mg tablet 5 mg PO DAILY 02/07/21 02/07/21 History losartan 100 mg tablet 100 mg PO DAILY 02/07/21 02/07/21 History aspirin 81 mg tablet,delayed 81 mg PO QAM #30 tab 02/08/21 Rx release atorvastatin 40 mg tablet 40 mg PO QAM #30 tab 02/08/21 Rx clopidogrel 75 mg tablet (Plavix) 75 mg PO DAILY #21 tab 02/08/21 Rx pantoprazole 40 mg tablet,delayed 40 mg PO DAILY #30 tab 02/08/21 Rx release Patient History Medical History (Updated 02/08/21 @ 15:07 by Sheron Haro PA-C) CKD (chronic kidney disease) stage 3, GFR 30-59 ml/min GERD (gastroesophageal reflux disease) Gout attack Hypertension Surgical History (Updated 02/07/21 @ 17:51 by Queta Luis PA-C) History of appendectomy History of arthroscopic knee surgery History of foot surgery r bone spur removal History of vasectomy Family History Mother TIA (transient ischemic attack) Multiple sclerosis Grandmother (Paternal) Stroke Social History (Updated 02/07/21 @ 17:53 by Queta Luis PA-C) Smoking Status: Never smoker Hx Alcohol Use: Yes Alcohol type: beer Alcohol Intake Frequency Comment: rare; holidays Hx Substance Use: No Preferred Language: Japanese Communication Ability: Effective Financial Intern Required: No Beliefs That Will Affect Care: None marital status: Current Living Situation: Spouse and Family current occupational status: employed current occupation: [employer] Feels Safe at Home: Yes Assistive Devices: None Review of Systems Review of Systems: All systems reviewed & are unremarkable except as noted in HPI & below Physical Exam Physical Exam: Physical Exam: Constitutional: appearance over nourished, healthy and normal Ears, Nose, Mouth and Throat: mucous membranes moist, no injection and skin normal, eyes normal Cardiovascular: normal S-1 and S-2 and regular rate and rhythm Respiratory: clear to auscultation (CTA) and no rales, ronchi or wheeze Musculoskeletal: no peripheral edema and good distal pulses Skin: no stigmata of neurocutaneous disease noted and normal and intact Eyes: extraocular muscles intact (EOMI) and pupils equal, round and reactive to light (PERRL), gross peripheral vision intact NEUROLOGIC EXAMINATION: Mental status: Alert and interactive Oriented to full date and location Oriented to person Speech fluent with no evidence of aphasia Cranial Nerves smile eye brow raise symmetric Reflexes: Deep tendon reflexes were symmetrical and graded 2/5. Sensory: light cool touch Coordination: finger to nose Gait/Stance: Posture normal. sitting on side of bed able to move appropriately Motor: Negative for pronator drift of out stretched arms with eyes closed. Strength: biceps triceps deltoids hand senior accountant analyst bilateral 5/5 hip flex patellar plantar flex ext 5/5 Results & Data ([facility]) Vital Signs (Past 12 Hours) Vital Signs Temp Pulse Resp BP Pulse Ox 02/08/21 07:55 36.7 C 72 16 149/96 H 94 02/08/21 03:35 36.6 C 79 20 153/89 H 94 02/08/21 01:04 36.6 C 71 18 155/92 H 93 02/08/21 00:25 68 16 155/90 H 94 02/07/21 23:56 70 17 150/99 H 94 Laboratory Results Abnormal lab results 02/07/21 02/07/21 02/07/21 Range/Units 14:49 14:50 14:50 WBC 10.89 H (4.8-10.8) K/uL RBC (4.7-6.1) M/uL Neut # (Auto) 7.50 H (1.4-6.5) K/uL [place] # (Auto) 0.73 H (0.11-0.59) K/uL Immature Gran # (Auto) 0.03 H (0.00-0.02) K/uL ESR (0-20) mm/hr Creatinine 1.43 H (0.6-1.4) mg/dl Glucose 103 H (70-99) mg/dl POC Glucose 104 H (70-99) mg/dl Hemoglobin A1c (4.5-5.6) % Alkaline Phosphatase 132 H (45-117) U/L C-Reactive Protein 0.58 H (0-0.29) mg/dl Total Protein 8.4 H (6.4-8.2) gm/dl 02/07/21 02/08/21 02/08/21 Range/Units 14:50 05:56 05:56 WBC (4.8-10.8) K/uL RBC 4.67 L (4.7-6.1) M/uL Neut # (Auto) (1.4-6.5) K/uL [place] # (Auto) 0.79 H (0.11-0.59) K/uL Immature Gran # (Auto) (0.00-0.02) K/uL ESR 24 H (0-20) mm/hr Creatinine (0.6-1.4) mg/dl Glucose 121 H (70-99) mg/dl POC Glucose (70-99) mg/dl Hemoglobin A1c (4.5-5.6) % Alkaline Phosphatase (45-117) U/L C-Reactive Protein (0-0.29) mg/dl Total Protein (6.4-8.2) gm/dl 02/08/21 Range/Units 05:56 WBC (4.8-10.8) K/uL RBC (4.7-6.1) M/uL Neut # (Auto) (1.4-6.5) K/uL [place] # (Auto) (0.11-0.59) K/uL Immature Gran # (Auto) (0.00-0.02) K/uL ESR (0-20) mm/hr Creatinine (0.6-1.4) mg/dl Glucose (70-99) mg/dl POC Glucose (70-99) mg/dl Hemoglobin A1c 6.0 H (4.5-5.6) % Alkaline Phosphatase (45-117) U/L C-Reactive Protein (0-0.29) mg/dl Total Protein (6.4-8.2) gm/dl Diagnostic Findings CT head-There is no hemorrhage, mass effect, or evidence of acute territorial ischemia by CT criteria.. Right maxillary sinus disease as above. Unremarkable CT angiogram of the brain. Unremarkable CT angiogram of the neck. MRI brain-. 1.1 cm focus of signal abnormality within the left lentiform nucleus. This favors a subacute infarct. Probable adjacent tiny subacute infarct within the left caudate head. No intracranial mass or pathologic enhancement. Possible old lacunar infarcts within the bilateral thalami. Marked mucosal thickening of the right maxillary sinus. TTE- 55-60% EF no ASD
[2021-02-08] MEDS ORDERED: PANTOprazole 40 MG TAB PO SCH (09:00)
[2021-02-08] MEDS ORDERED: allopurinoL 100 MG TAB PO SCH (09:00)
[2021-02-08] MEDS ORDERED: ASPIRIN 81 MG ECTAB PO SCH (09:00)
[2021-02-08] MEDS ORDERED: ATORVASTATIN 40 MG TAB PO SCH (09:00)
--- NOTE | 2021-02-08 09:14 | Magnetic Resonance Report ---
MRI OF THE BRAIN WITHOUT AND WITH IV CONTRAST CLINICAL HISTORY: Strokelike symptoms. Blurry vision. Right hand weakness. COMPARISON STUDY: Head CT and CTA of the head February 07, 2021. TECHNIQUE: Utilizing a 1.5 Katie magnet and dedicated coil, multiplanar, multiecho imaging of the br ain was performed pre and postcontrast administration. IV administration of 9.8 mL of Gadavist contr ast was uneventful. FINDINGS: Note is made of a 1.1 cm hyperintense focus within the left lentiform nucleus on axial imag e 14 of 24 of the diffusion-weighted sequence. This is slightly hypointense on the ADC map. There is corresponding mild T2 hyperintensity. There is a probable additional 5 mm hyperintense focus within t he left caudate head on axial image 15. There are probable old lacunar infarcts within the bilateral thalami. Ventricular system is normal. Basal cisterns are patent. No acute intracranial hemorrhage, m idline shift or mass effect is present. No intracranial mass or pathologic enhancement is noted. Calv arial signal is normal. There is marked mucosal thickening of the right maxillary sinus. Flow-voids f or the major intracranial vessels are present. IMPRESSION: 1. 1.1 cm focus of signal abnormality within the left lentiform nucleus. This favors a subacute infar ct. Probable adjacent tiny subacute infarct within the left caudate head. 2. No intracranial mass or pathologic enhancement. 3. Possible old lacunar infarcts within the bilateral thalami. 4. Marked mucosal thickening of the right maxillary sinus. ACT 112: Negative or not required by law. Electronically signed by: Johnathan Zhang M.D. 02/08/2021 9:13 AM
--- NOTE | 2021-02-08 13:41 | Hospitalist Progress Note ---
Date of Service February 08, 2021 Assessment & Plan (1) Stroke-like symptoms: (2) Amaurosis fugax of right eye: (3) Dystonia of extremity: (4) Hypertension: (5) CKD (chronic kidney disease) stage 3, GFR 30-59 ml/min: (6) DVT prophylaxis: Plan: Patient is a 55 yr male with H/O HTN, gout, CKD stage III, obesity who presents to ED after experiencing strokelike symptoms since 9:00. Upon my evaluation symptoms have fully resolved. He passed dysphagia screen. Initial CT of head and CT of head and neck negative for acute abnormality. He does continue to have involuntary movements of right lower extremity. Subacute CVA-POA Amaurosis fugax of right eye Dystonia of right lower extremity --MRI Brain:1.1 cm focus of signal abnormality within the left lentiform nucleus. This favors a subacute infarct. Probable adjacent tiny subacute infarct within the left caudate head. No intracranial mass or pathologic enhancement. Possible old lacunar infarcts within the bilateral thalami. --Head/Neck CTA:There is no hemorrhage, mass effect, or evidence of acute territorial ischemia by CT criteria. Unremarkable CT angiogram of the brain. Unremarkable CT angiogram of the neck. -ECHO: No interatrial shunt, EF 55 to 60%. -Total cholesterol 143, LDL 70. -Appreciate Neurology Input Continue aspirin, statin Consider adding Plavix for 21 days if neurology agrees Will need ophthalmology eval as OP Needs follow-up with neurology upon discharge Prediabetes HbA1c 6.0 HTN BP Stable Resume amlodipine and losartan tomorrow CKD-III baseline cr 1.4, bun/cr stable Monitor renal function Avoid nephrotoxic agents as able GERD continue PPI Gout continue allopurinol DVT px: Lovenox SQ Code Status FULL CODE Disposition: PT/OT recommends to DC home Admission and Anticipated Discharge Date Admission Date: February 07, 2021 Subjective Patient is seen and examined at bedside States his visual symptoms, right leg abdominal movement completely resolved Denies any chest pain, shortness of breath, dizziness, nausea, abdominal pain, focal weakness Offers no other complaints Review of Systems Review of Systems: All systems reviewed & are unremarkable except as noted in Subjective Physical Exam Physical Exam: Physical Exam: Vitals signs as noted above General Appearance:Moderately built and nourished, no apparent distress Head: normocephalic, Atraumatic Eyes: normal inspection, EOMI Neck: supple, Trachea midline Respiratory/Chest: Normal breath sounds, CTA Cardiovascular: S1, S2, No murmur Abdomen/GI:Soft, Non tender, Bowel sounds present Extremities/Musculoskeletal:normal inspection, no edema Neurologic/Psych:AAOX3, grossly no focal neurological deficits Skin: normal color, warm Results & Data Results & Data ([facility]) Vital Signs (Past 12 Hours) Vital Signs Temp Pulse Pulse Resp BP Pulse Ox 02/08/21 11:57 37.1 C 73 16 140/93 92 02/08/21 09:11 83 02/08/21 07:55 36.7 C 72 16 149/96 H 94 02/08/21 03:35 36.6 C 79 20 153/89 H 94 Laboratory Results Short CBC 02/07/21 02/08/21 Range/Units 14:50 05:56 WBC 10.89 H 8.02 (4.8-10.8) K/uL Hgb 16.7 14.5 (14.0-18.0) g/dL Hct 48.6 43.5 (42-52) % Plt Count 280 270 (130-400) K/uL [facility] 02/07/21 02/08/21 14:50 05:56 Sodium 137 138 Potassium 3.8 3.8 Chloride 103 105 Carbon Dioxide 26 27 BUN 18 18 Creatinine 1.43 H 1.37 Glucose 103 H 121 H Calcium 9.2 8.8 Cardiac Enzymes 02/07/21 Range/Units 14:50 Troponin I < 0.015 (0-0.045) ng/ml Liver Function 02/07/21 Range/Units 14:50 Total Bilirubin 0.6 (0.2-1) mg/dl AST 21 (15-37) U/L ALT 42 (12-78) U/L Alkaline Phosphatase 132 H (45-117) U/L Albumin 4.5 (3.4-5.0) gm/dl
--- NOTE | 2021-02-08 14:08 | Electrocardiogram Report ---
Test Reason : Blood Pressure : / mmHG Vent. Rate : 074 BPM Atrial Rate : 074 BPM P-R Int : 162 ms QRS Dur : 084 ms QT Int : 412 ms P-R-T Axes : 077 097 066 degrees QTc Int : 457 ms Normal sinus rhythm Rightward axis Abnormal ECG When compared with ECG of 07-FEB-2021 14:50, Septal infarct is now Present Confirmed by Willy Kemp ([id number]) on 02/08/2021 2:08:24 PM Referred By: REFERRED SELF Confirmed By:Jorge Alberto Kmep
[2021-02-08] MEDS ORDERED: STROKE PATIENT DISCHARGE STA (16:42)
--- NOTE | 2021-02-08 16:43 | Discharge Summary ---
Date of Service February 08, 2021 Admission HPI Per Admitting Provider This is a 55-year-old male who has significant past medical history of HTN, gout, CKD stage III, obesity who presents to ED after experiencing strokelike symptoms since 9:00. After further recollection he actually feels symptoms may have initiated on Saturday. He states he was out hunting with his daughter. His daughter shot a deer and when he was dragging a deer out of the [place] he developed abrupt vision loss in his right eye for approximately 20 minutes. He also felt weakness to his right arm. Symptoms resolved on own and he felt back to normal the rest of the night. He described his right vision loss is just seeing, "a white screen." When he would cover his right eye he could see on his left eye. This morning at approximately 9 AM his vision loss returned. He was driving by the [employer] on his way to work and he had difficulty maneuvering steering wheel with right arm. Symptoms lasted while at work and he was witnessed by his coworker to have difficulty with speech and reported right facial droop. He states when his boss was talking to him he could comprehend what she was saying but he was unable to speak. He also noted inability to control right hand and arm, weakness and right arm drift. He also elicits to right leg weakness. He has never experienced anything like this in the past, but does recall transient vision loss of the right eye approximately 10 years ago, again while hunting. He denies any recent illness, insect or tick bite, fever, chills, lightheadedness, dizziness, syncope, chest pain, shortness breath, nausea, vomiting, abdominal pain, URI symptoms, change in bowel or urinary habits. His symptoms lasted till approximately 230. He is now back to baseline although he does have uncontrolled movements to right lower extremity. He denies any new medications. He has been having right knee and right shoulder pain and did take his 's tramadol on 2 separate occasions. In ED patient remained hemodynamically stable although he was hypertensive. His creatinine was elevated at 1.43 which is consistent with outpatient labs. He underwent head and neck CTA which was unremarkable for acute abnormality. Admission Exam Per Admitting Provider Physical Exam Physical Exam: Constitutional: WD/WN, vitals as above, NAD, sitting up in bed, pleasant, conversing easily Head: Normocephalic, Atraumatic Eyes: PERRL, conjunctivae normal, anicteric sclerae ENMT: external ear and nose normal, oropharynx normal Neck: trachea midline, no thyromegaly normal visual inspection Respiratory: normal respiratory effort, lungs clear to auscultation, no wheeze, rales, rhonchi. Normal insp/exp effort, no accessory muscle use Cardiovascular: RRR, no murmur, no edema Vessels: no JVD or carotid bruit Chest: normal inspection of chest Abdomen: normal bowel sounds, soft, nontender, no hepatosplenomegaly Musculoskeletal: no cyanosis or clubbing, extremities motor strength 5/5 Skin: no rashes, warm and dry normal turgor Neurologic: PERRL, EOMI, accommodation nl, no face palsy, no dysarthria CN's II-XI intact bilaterally and moves all extremities , no pronator drift, +dystonia to RLE, point to point intact, rapid alternating movements in tact Psychiatric: A+Ox3, euthymic affect Lymphatic: no cervical or axillary lymphadenopathy : deferred ' Principal Diagnosis Subacute CVA Amaurosis fugax of right eye Prediabetes Discharge Data Allergies Allergy/AdvReac Type Severity Reaction Status Date / Time No Known Allergies Allergy Unverified 02/07/21 15:53 Consultations 02/07/21 16:17 ED Decision to Admit Stat 02/07/21 18:00 Consult Neurology Routine Ordered Studies 02/07/21 14:42 CT angio head w con Stat CT angio neck with con Stat CT head/brain wo con Stat 02/07/21 18:00 MR brain wo/w con Routine Hospital Course (1) Stroke-like symptoms: (2) Amaurosis fugax of right eye: (3) Dystonia of extremity: (4) Hypertension: (5) CKD (chronic kidney disease) stage 3, GFR 30-59 ml/min: (6) DVT prophylaxis: Patient is a 55 yr male with H/O HTN, gout, CKD stage III, obesity who presents to ED after experiencing strokelike symptoms since 9:00. Upon my evaluation symptoms have fully resolved. He passed dysphagia screen. Initial CT of head and CT of head and neck negative for acute abnormality. He does continue to have involuntary movements of right lower extremity. Subacute CVA-POA Amaurosis fugax of right eye Dystonia of right lower extremity --MRI Brain:1.1 cm focus of signal abnormality within the left lentiform nucleus. This favors a subacute infarct. Probable adjacent tiny subacute infarct within the left caudate head. No intracranial mass or pathologic enhancement. Possible old lacunar infarcts within the bilateral thalami. --Head/Neck CTA:There is no hemorrhage, mass effect, or evidence of acute territorial ischemia by CT criteria. Unremarkable CT angiogram of the brain. Unremarkable CT angiogram of the neck. -ECHO: No interatrial shunt, EF 55 to 60%. -Total cholesterol 143, LDL 70. -Appreciate Neurology Input Continue aspirin, statin Consider adding Plavix for 21 days if neurology agrees Will need ophthalmology eval as OP Needs follow-up with neurology upon discharge Prediabetes HbA1c 6.0 HTN BP Stable Resume amlodipine and losartan tomorrow CKD-III baseline cr 1.4, bun/cr stable Monitor renal function Avoid nephrotoxic agents as able GERD continue PPI Gout continue allopurinol DVT px: Lovenox SQ Code Status FULL CODE Disposition: PT/OT recommends to DC home Total Time Total Time Spent Total Time Spent (In Minutes): 49 minutes Discharge Plan Discharge Items Patient Disposition: Home - Self-Care Reason For Visit: LOST FOCUS, COULDN'T TALK, EYE BLURRY, DROOPING Discharge Diagnosis: Subacute cerebrovascular accident (Stroke) Activity: Per Instructions section Driving/Machine Use: Not permitted until cleared by your neurologist. Non-emergency contact: Primary Care Provider, Neurologist and Chuck Wagon Driver Call non-emergency contact if: you have any medication questions, your symptoms worsen, your pain is concerning for you and you have a fever Follow-up/Referrals: Galo Jolly MD [Primary Care Provider] - (Date & Time 02/13/2021 9:00 AM Provider Galo Jolly MD Department Family Practice [facility] ) Sheron Haro PA-C [Physician Scaffolder] - (Date & Time 03/24/2021 11:20 AM Provider Sheron Haro PA-C Department Neurology [facility] ) Diet: Heart Healthy Addtl Attending Provider Instructions: Follow-up with your primary care physician Dr. Owusu on 02/13/2021 9:00 AM Follow-up with your neurologist Sheron Haro PA-C on 03/24/2021 11:20 AM Follow-up with your software developer intern for evaluation as recommended in 4-6 weeks ---Your serological test for anaplasmosis is pending at the time of discharge. Follow-up with your physician for results. ---Take Aspirin 81mg once daily along with Clopidogrel (Plavix) 75 mg daily for 3 weeks and then transition to 81mg daily only for life as per your Neurologist. ---Get ZIO patch arranged as outpatient to rule out any arrhythmias. ---Your Omeprazole is to pantoprazole 40 mg daily while on Plavix. Given interaction between omeprazole and Plavix. You can switch back to omeprazole after completion of Plavix treatment for 21 days. Seek immediate medical attention if your symptoms reoccur or worsen Please take all medications as instructed on discharge list below. Please call if you have any questions or problems. You can reach a [facility] hospitalist on duty at [facility] 24 hours a day by calling [phone] Risk Factors for Stroke: You can reduce your chances of stroke by working with your medical provider to adopt a healthy lifestyle. Some specific ways to lower your chance of stroke are: * If you are a smoker, now is the time to stop smoking cigarettes * If you are diabetic, improve the control of your blood sugars * Avoid excessive amounts of alcohol * Control high blood pressure * Lose weight if you are overweight * Be sure to lead an active lifestyle * Eat a healthy diet low in salt, cholesterol and fat You should know about other risk factors for stroke that you are unable to control. These include: * Age 55 years or older * Male gender * Certain racial groups: , or / * Family History of Stroke, Mini stroke or Heart Attack * Sickle Cell Disease Follow Up: It is important for you to keep your follow up appointments with your medical provider. Who to Call and When: Medical Emergencies: Call 911 immediately if you experience any of the following warning signs and symptoms of Stroke: * Sudden numbness or weakness of the face, arm or leg, especially on one side of the body * Sudden confusion, trouble speaking or understanding * Sudden trouble seeing in one or both eyes * Sudden trouble walking, dizziness, loss of balance or coordination * Sudden severe headache with no cause Do not delay calling 911 if you experience any warning signs or symptoms of a stroke. Delay in seeking medical attention may affect what treatments can be given to you. . Pending Studies at Discharge: No Stand-Alone Forms: Medications to Prevent Stroke, My [facility], Smoking Cessation Medications and DC Order Prescriptions: New atorvastatin 40 mg Tablet 40 mg PO QAM Qty: 30 RF: 1 aspirin 81 mg Tablet,Delayed Release (Dr/Ec) 81 mg PO QAM Qty: 30 RF: 2 pantoprazole 40 mg Tablet,Delayed Release (Dr/Ec) 40 mg PO DAILY Qty: 30 RF: 1 clopidogrel [Plavix] 75 mg tablet 75 mg PO DAILY Qty: 21 RF: 0 Continued allopurinol 100 mg Tablet 100 mg PO BID RF: 0 amlodipine 5 mg tablet 5 mg PO DAILY RF: 0 losartan 100 mg tablet 100 mg PO DAILY RF: 0 Discontinued omeprazole 20 mg capsule,delayed release(DR/EC) 20 mg PO DAILY RF: 0 Discharge Orders: Discharge Order (Routine); Ordered 02/08/21 Ordered By: Sebastian Pedersen/Other Patient Handouts: A1C, Prediabetes, 5 Steps for Eating Healthier Admission Data Admit Date/Time: 02/07/21 17:02 Attending Provider: Sebastian Pratt Admit Provider: Herson Pritchard Primary Care Provider: Galo Jolly Other Providers: Jacek Gimenez ; Herson Pritchard Other Interventions: Discharge Summary Assessment (RN) Last Done: 02/08/21 16:45
--- NOTE | 2021-02-08 17:37 | Pharmacy Report ---
Pharmacist Stroke Counseling - Date of Service February 08, 2021 - Scope: Pharmacy has been consulted to provide medication discharge counseling for this patient admitted with ischemic stroke as per the Pharmacist Discharge Counseling for Stroke Patients Protocol. - Medications on Discharge: Home Medications Medication Instructions Recorded Confirmed allopurinol 100 mg tablet 100 mg PO BID 05/24/19 02/07/21 amlodipine 5 mg tablet 5 mg PO DAILY 02/07/21 02/07/21 losartan 100 mg tablet 100 mg PO DAILY 02/07/21 02/07/21 New Rx's Medication Instructions Recorded aspirin 81 mg tablet,delayed 81 mg PO QAM #30 tab 02/08/21 release atorvastatin 40 mg tablet 40 mg PO QAM #30 tab 02/08/21 clopidogrel 75 mg tablet (Plavix) 75 mg PO DAILY #21 tab 02/08/21 pantoprazole 40 mg tablet,delayed 40 mg PO DAILY #30 tab 02/08/21 release Omeprazole was discontinued as well - Action: The above medications, specifically ones for stroke treatment/prophylaxis, have been reviewed in detail with the patient and/or patient communications representative(s) prior to discharge. This includes indication, common adverse reactions, drug interactions, and medication administration. Medication counseling has been employed using the teach-back method to ensure understanding. - Outcome: The patient and/or patient communications representative(s) have demonstrated understanding of the medications. Additional comments: Discussed clopidogrel x3 weeks only (per discharge instructions) and the ability to switch back to omeprazole if he prefers after the 3 week period "Medications to prevent stroke" discussed in detail Thank you for allowing pharmacy to be involved in the care of this patient. Please call [phone] with any additional questions
[2021-02-09] MEDS ORDERED: amLODIPine BESYLATE 5 MG TAB PO SCH (09:00)
[2021-02-09] MEDS ORDERED: LOSARTAN POTASSIUM 50 MG TAB PO SCH (09:00)
== END 2021-02-08 18:25 | disposition home or self-care (01) ==
LOC: ED 12:42 → EDINP 12:42 → SUATTDRO 17:02 → EDINP 18:29 → 2N 02-08 00:48